=== PATIENT | male | born 1950 | race Hispanic/Latino ===

== ENCOUNTER → 2025-02-12 | Outpatient (CLI) | payer MEDICARE ==
[~2025-02-12] VITALS: Ht 162.6 cm; Wt 70.3 kg
[~2025-02-12] MED LIST: PRAV40TA62 PO; RAMI10CA76 PO
[2025-02-12 09:55] VITALS: BP 140/73; PULSE 68; RESP 15; TEMP 98.6
[2025-02-12 09:56] LABS: IMMATURE GRANULOCYTE ABSOLUTE 0.02 K/uL (0-1); NUCLEATED RED BLOOD CELLS 0.0 % (0.0-0.19); PLATELET COUNT (AUTO) 286 K/uL (130-400); RED BLOOD CELL COUNT(AUTO) 4.72 MIL/uL (4.50-6.20); RED CELL DISTRIBUTION WIDTH 11.8 % (11.0-15.5); WHITE BLOOD COUNT (AUTO) 7.2 K/uL (4.8-10.8)
[2025-02-12 10:02] LABS: CREATININE 1.2 mg/dL (0.5-1.3); GLOMERULAR FILTR. RATE CALC 63.0 mL/min (>90); GLUCOSE,RANDOM 98.0 mg/dL (70-105); SODIUM SERUM 139.0 mmol/L (136-145); UREA NITROGEN, BLOOD 16.0 mg/dL (7-18)
[2025-02-12 10:03] LABS: APPEARANCE,URINE CLEAR (CLEAR); GLUCOSE, URINE (UA) NEGATIVE (NEGATIVE); LEUKOCYTE ESTERASE ,URINE NEGATIVE Leu/uL (NEGATIVE); NITRATE,URINE NEGATIVE (NEGATIVE); OCCULT BLOOD,URINE NEGATIVE (NEGATIVE)
[2025-02-12 10:07] LABS: ADD UA MICROSCOPIC NO
[2025-02-12 10:08] LABS: INR 0.99 (0.85-1.15)
--- NOTE | 2025-02-12 15:23 | EKG ---
[facility] Test Date: 2025-02-12 Test Time: 10:40:16 Pat Name: SADIE CIFUENTES Department: [facility] Room: Gender: M Baccarat Manager: [id number] : 1950 Requested By: Nancy FARMER Order Number: [id number] Reading MD: Bibiana Edwards Measurements Intervals [place] Rate: 59 P: 61 OR: 176 QRS: 9 QRSD: 92 T: 36 QT: 436 QTc: 433 Interpretive Statements Sinus rhythm Compared to ECG 11/30/2024 09:24:32 No significant changes Electronically Signed On 02-12-2025 20:31:28 PATTERN STAMPER by Bibiana Edwards Please click the below link to view image of tracing.
--- NOTE | 2025-02-13 07:19 | HMCIMG ---
EXAM: CR Chest, 1 View. CLINICAL HISTORY: PREOP COMPARISON: None provided. FINDINGS: LUNGS: The lungs show no infiltrate or other acute finding. PLEURAL SPACES: No evidence of pleural effusion or pneumothorax. MEDIASTINUM: Cardiac size and mediastinal contours within normal limits. BONES: No acute osseous abnormality. IMPRESSION: No acute cardiopulmonary pathology is evident. /[place]
== END | disposition home or self-care (01) ==
LOC: DAH 08:59 → EDSTATUS 09:00
PROVIDERS: ATTEND Internal Medicine Cardiovascular Disease
DX: Z01.818 Encounter for other preprocedural examination (principal); I25.10 Atherosclerotic heart disease of native coronary artery without angina pectoris; R07.89 Other chest pain
CPT/HCPCS: 36415; 71045; 80048; 81003; 83880; 85025; 85610; 85730; 93005

== ENCOUNTER 2025-03-22 05:40 | Day surgery (SDC) | payer MEDICARE ==
--- NOTE | 2025-03-19 10:28 | EKG ---
[facility] Test Date: 2025-03-19 Test Time: 10:25:57 Pat Name: SADIE CIFUENTES Department: [facility] Room: Gender: M Wheel Adjuster: [id number] : 1950 Requested By: Nancy FARMER Order Number: [id number] Reading MD: Elian Valentin Measurements Intervals [place] Rate: 56 P: 60 OK: 179 QRS: -17 QRSD: 90 T: 0 QT: 410 QTc: 395 Interpretive Statements Sinus rhythm Low voltage, extremity leads Nonspecific T abnormalities, inferior leads Compared to ECG 02/12/2025 10:40:16 Low QRS voltage now present T-wave abnormality now present Electronically Signed On 03-21-2025 09:20:48 WEAVING PROFESSOR by Elian Valentin Please click the below link to view image of tracing.
[2025-03-19 10:37] VITALS: BP 157/71; PULSE 58; RESP 17; TEMP 97.7
[2025-03-19 10:39] LABS: IMMATURE GRANULOCYTE ABSOLUTE 0.02 K/uL (0-1); NUCLEATED RED BLOOD CELLS 0.0 % (0.0-0.19); PLATELET COUNT (AUTO) 233 K/uL (130-400); RED BLOOD CELL COUNT(AUTO) 4.58 MIL/uL (4.50-6.20); RED CELL DISTRIBUTION WIDTH 12.1 % (11.0-15.5); WHITE BLOOD COUNT (AUTO) 6.2 K/uL (4.8-10.8)
[2025-03-19 10:46] LABS: CREATININE 1.1 mg/dL (0.5-1.3); GLOMERULAR FILTR. RATE CALC 70.0 mL/min (>90); GLUCOSE,RANDOM 96.0 mg/dL (70-105); SODIUM SERUM 142.0 mmol/L (136-145); UREA NITROGEN, BLOOD 16.0 mg/dL (7-18)
[2025-03-19 10:48] LABS: INR 0.96 (0.85-1.15)
[2025-03-19 10:53] LABS: APPEARANCE,URINE CLEAR (CLEAR); GLUCOSE, URINE (UA) NEGATIVE (NEGATIVE); LEUKOCYTE ESTERASE ,URINE NEGATIVE Leu/uL (NEGATIVE); NITRATE,URINE NEGATIVE (NEGATIVE); OCCULT BLOOD,URINE NEGATIVE (NEGATIVE)
[2025-03-19 11:07] LABS: ADD UA MICROSCOPIC NO
--- NOTE | 2025-03-19 11:52 | HMCIMG ---
EXAM: CR Chest, 1 View. CLINICAL HISTORY: PRE OP COMPARISON: DX - CHEST 1VW - 02/12/25 10:30 EST FINDINGS: LUNGS: The lungs show no infiltrate or other acute finding. PLEURAL SPACES: No pleural effusion or pneumothorax. MEDIASTINUM: Cardiac size and mediastinal contours within normal limits. BONES: No acute osseous abnormality. IMPRESSION: 1. No acute cardiopulmonary findings. /[place]
[~2025-03-22] VITALS: Ht 162.6 cm; Wt 70.0 kg
[2025-03-22] VITALS (10 sets, daily range): BP systolic 114–156; BP diastolic 51–68; PULSE 57–71; RESP 14–20; TEMP 97.4–98
[~2025-03-22 05:40] MED LIST changes: +ASPI-1443 PO
[2025-03-22] MEDS ORDERED: SODIUM BICARB 50MEQ 50ML VIAL 50 ML ONE (07:12)
[2025-03-22] MEDS ORDERED: LIDOCAINE HCL 400MG/20ML VIAL ONE (07:12)
[2025-03-22] MEDS ORDERED: IOHEXOL 350 MG/ML 100ML INFUS..BTL IV ONE (07:12)
[2025-03-22] MEDS ORDERED: HEParin-NS 1,000 UNIT/500 ML 1,000 ML IV ONE (07:12)
[2025-03-22] MEDS ORDERED: NITROGLYCERIN 50MG VIAL ONE (07:13)
[2025-03-22] MEDS ORDERED: MIDAZOLAM HCL 1 MG/ML 2ML VIAL ONE ×3 (07:27→08:06)
[2025-03-22] MEDS ORDERED: 0.9%NACL 1000ML 1,000 ML IV SCH (09:30)
--- NOTE | 2025-03-22 09:53 | CCATH ---
PROCEDURES: * Left heart catheterization. * Selective right and left coronary arteriogram. * Balloon angioplasty and stent placement in the proximal and mid RCA. * Conscious sedation for 60 minutes. INDICATIONS: * Recurrent angina. * Abnormal exercise tolerance test. * High calcium score. COMPLICATIONS: None. TOTAL CONTRAST: Approximately 80 mL. APPROACH: Right femoral approach. DESCRIPTION OF PROCEDURE: Right radial access was performed and we were able to cannulate the vessel on 4 separate occasions; however, due to a multitude of reasons including probable tortuosity of the vessel as well as spasm, we were never able to advance the wire comfortably. Given that, I abandoned that approach and converted to a femoral approach. After the conscious sedation was administered, the right common femoral artery region was infiltrated with 2% Xylocaine without epinephrine. Ultrasound guidance was utilized to cannulate the right common femoral artery. A 6-Somali sheath was advanced in a retrograde fashion with a modified Seldinger technique. An FR4 6-Somali diagnostic catheter was advanced over an indwelling wire and positioned in the left ventricular cavity. Left ventricular end-diastolic pressure measurement was obtained. Ventriculography was deferred. The patient had preserved LV systolic function by echocardiography. Pullback revealed no aortic stenosis. The catheter was then engaged in the ostium of the right coronary artery, which was imaged in multiplane. This was a large vessel that had a tortuous course in the distal segment. It gave us an acute marginal, moderately large PDA and a PLVB. The proximal to mid segment of the right coronary artery had a 90% stenotic lesion. The rest of the RCA was free of disease. The catheter was withdrawn and a FL4 6-Somali catheter was advanced, selectively engaging the ostium of the left main. Imaging was obtained in multiplane. The left main was a moderately sized vessel that was free of disease. It trifurcated into the LAD, a tiny intermediate, and circumflex. The LAD was a large vessel in its proximal portion, giving rise to diagonal 1 and diagonal 2. Distal to the second diagonal, the LAD was diminutive. The second diagonal, however, was large. The LAD had no significant stenotic lesions. The intermediate was a tiny vessel that had an ostial 80% lesion. The circumflex was a large vessel that gave us several marginal branches in the ongoing circumflex. There were no significant stenotic lesions. Given the patient's symptoms, abnormal exercise tolerance test and high calcium score, the decision was made to proceed with angioplasty and stenting of the RCA. At this point, an FR4 6-Somali guide was advanced selectively engaging the ostium of the right coronary artery. After full heparinization, a 0.014 wire was advanced in the distal RCA circulation. We initially utilized a 3.5 x 23 Xience Skypoint drug-eluting stent, which was deployed in the area of the proximal to mid RCA covering the lesion. We inflated the balloon to 13 atmospheres at 3.59 mm in size with good angiographic results; however, there appeared to be distal edge haziness and a stenotic segment, which I felt may progress to further dissection or occlusion. Given that, I elected to advance a second stent, which was a 3.5 x 15, overlapping the distal end, which was also deployed to 13 atmospheres at 3.59 mm in size with good final angiographic results. At this point, the procedure was completed. The patient tolerated well and left the Cardiac Recreation Specialist in stable condition. Perclose was utilized with good hemostasis. FINAL IMPRESSION: * Severe coronary artery disease. * Abnormal exercise tolerance test. * Recurrent angina. * Successful balloon angioplasty and stenting of the right coronary artery with 3.5 x 23 with distal overlapping 3.5 x 15 stents with good angiographic results. TID: [id number] RECEIPT: [id number]
[2025-03-22] MEDS ORDERED: CLOP75TA32 PO (11:10)
== END 2025-03-22 14:00 | disposition home or self-care (01) ==
LOC: DAH 05:40
PROVIDERS: ATTEND Internal Medicine Cardiovascular Disease
DX: R94.39 Abnormal result of other cardiovascular function study (principal); I25.119 Atherosclerotic heart disease of native coronary artery with unspecified angina pectoris; I12.9 Hypertensive chronic kidney disease with stage 1 through stage 4 chronic kidney disease, or unspecified chronic kidney disease; N18.30 Chronic kidney disease, stage 3 unspecified; E78.5 Hyperlipidemia, unspecified; Z79.82 Long term (current) use of aspirin; Z82.49 Family history of ischemic heart disease and other diseases of the circulatory system; Z79.01 Long term (current) use of anticoagulants; Z79.899 Other long term (current) drug therapy; Z98.890 Other specified postprocedural states
CPT/HCPCS: 80048; 83880; 85025; 85610; 85730; 81003; 36415; 71045; 93005; 93458; 99156; 99157 ×5; 85347 ×2; C9600; C1769 ×2; C1887; C1894 ×3; C1760; Q9965; C1874 ×2; J3010; J3490 ×4; J1644 ×3; J2250 ×3; Q9967; A4215; A4222; A4221; A4663; A4216; A4606; A4223 ×3; 96360; 96361